=== PATIENT | female | born 1965 | race Caucasian/White ===

== ENCOUNTER → 2020-08-28 | Outpatient (CLI) | payer OTHER ==
[2020-08-28 15:07] VITALS: BP 119/79; PULSE 104; RESP 18; TEMP 98.2
--- NOTE | 2020-08-28 15:25 | P.GSHP ---
History of Present Illness H&P Date: 08/28/20 Chief Complaint: abnormal mammogram and ultrasound Neisha is a 54 year old white female with a mammographic change in the left breast. She is seen in concultation for DR. Boone. The patient had bilateral mammogram on . This revealed an area of asymmetry in the left breast as well as an area of microcalcification. After review with Dr. Martins it was recommended the compression views of the asymmetry be performed as well as magnification views of the area of calcification in the left breast. No lesions of concern were identified in the right breast. An ultrasound no specific lesion of concern was noted. She does not feel any new lumps masses or nodules of concern in either breast. She is not complaining of any nipple discharge or skin changes. She is not complaining of any trauma or infection of the breast. She has not had any prior surgery in the breast. Caffeine:4 pops/day nicotine: none chocolate: occasional Family history: mother: breast cancer Hormonal History: menarche: 9 , adopted 2 breast fed: yes, age at 28 menopause: 44, uterine ablation for bleeding BCP: 1 year hormones: none Surgical history: Uterine ablation Gastric sleeve 2014 [facility] Medical History: depression diabetes Social History: nicotine: none alcohol:none drugs: none - Constitutional Constitutional: Denies chills, Denies fever - EENT Eyes: denies blurred vision, denies pain Ears: deny: decreased hearing, tinnitus Ears, nose, mouth and throat: Denies headache, Denies sore throat - Breasts Breasts: bilateral: as per HPI - Cardiovascular Cardiovascular: Denies chest pain, Denies shortness of breath - Respiratory Respiratory: Denies cough, Denies 7 - Gastrointestinal Gastrointestinal: Denies abdominal pain, Denies diarrhea, Denies nausea, Denies vomiting - Genitourinary (Female) Genitourinary: Denies dysuria, Denies hematuria - Menstruation Menstruation: Reports postmenopausal - Musculoskeletal Musculoskeletal: Denies myalgias - Integumentary Integumentary: Denies pruritus, Denies rash - Neurological Neurological: Denies numbness, Denies weakness - Psychiatric Psychiatric: Reports depression - Endocrine Comment: diabetic - Hematologic/Lymphatic Comment: none - Allergic/Immunologic Allergic/Immunologic: Reports as per HPI Medications and Allergies Home Medications Medication Instructions Recorded Confirmed Type Ascorbic Acid [Vitamin C] 500 mg PO DAILY 08/28/20 08/28/20 History Cyanocobalamin (Vitamin B-12) 1,000 mcg PO DAILY 08/28/20 08/28/20 History [Vitamin B-12] DULoxetine HCL [Cymbalta] 20 mg PO HS 08/28/20 08/28/20 History Multivitamin [Multivitamins Adult 1 each PO DAILY 08/28/20 08/28/20 History Gummies] Zinc 50 mg PO DAILY 08/28/20 08/28/20 History Allergies Allergy/AdvReac Type Severity Reaction Status Date / Time epinephrine Allergy Vomiting Unverified 08/28/20 14:59 Penicillins Allergy Rash/Hives Unverified 08/28/20 14:59 Surgical - Exam BMI 34.6 - General no distress - Eyes normal ocular movement - ENT no hearing loss, no congestion - Neck no masses, trachea midline - Respiratory normal expansion, normal respiratory effort - Cardiovascular Rhythm: regular Heart Sounds: normal: S1, S2 - Abdomen Abdomen: soft - Integumentary normal turgor - Neurologic no disoriented, no combative - Musculoskeletal normal gait - Psychiatric oriented to time, oriented to person, oriented to place, speech is normal, memory intact Breast exam: sports BRA ? size inspection: Bilateral grade 2/3 ptosis Palpation: Right breast: Multi-positional exam fibrocystic changes no dominant masses or no dules of concern Right axilla: No adenopathy of concern Left breast: Multi-positional exam fibrocystic changes, no dominant masses or nodules of concern Left axilla: Positive adenopathy approximately 1 cm freely mobile lymph node Results Mammogram and ultrasound reviewed with Dr. Martins, an area of microcalcification in the left breast as well as some asymmetry was noted and mag views of the microcalcifications and compression views of asymmetry were recommended Assessment and Plan Assessment: Impression: depression diabetes Abnormal left breast mammogram Shotty left axillary adenopathy Positive family history of breast cancer Plan: 1. Mag views of the area of calcification in the left breast, compression views of the area of asymmetry in the left breast 2. Further recommendation to follow completion graphic workup Cc: Dr. Boone
--- NOTE | 2020-08-31 08:20 | MM ---
Reason for exam: review of outside study. Last mammogram was performed 1 month ago. History: Family history of breast cancer in mother. Physical Findings: Breast exam performed by Dr. Madrid. MG 3D Diag Mammo W/Cad LT CC, MLO, spot compression CC, spot compression MLO, CC with magnification, and MLO with magnification view(s) were taken of the left breast. Prior study comparison: August 03, 2020, mammogram. July 20, 2020, mammogram. There are scattered fibroglandular densities. There is an asymmetry left outer breast on CC view only at posterior depth, likely normal tissue and not seen on prior ultrasound, follow up left diagnostic mammogram recommended in 6 months. There is a grouping of coarse heterogeneous calcifications left upper outer quadrant measuring 4 x 3 x 3mm and stereotactic core biopsy is recommended. These results were verbally communicated with the patient and result sheet given to the patient on 08/28/20. ASSESSMENT: Suspicious, BI-RAD 4 RECOMMENDATION: Stereotactic core biopsy of the left breast. Called Dr. Madrid's office with mammographic findings. Biopsy scheduled for 09/03/20 at 8:00. PRELIMINARY REPORT CALLED AND FAXED TO DR. MADRID ON 08/31/20.
== END ==
LOC: WWCWWP 14:46
PROVIDERS: ATTEND Surgery
DX: R92.1 Mammographic calcification found on diagnostic imaging of breast (principal); F32.9 Major depressive disorder, single episode, unspecified; E11.9 Type 2 diabetes mellitus without complications; N64.89 Other specified disorders of breast; R59.9 Enlarged lymph nodes, unspecified; Z80.3 Family history of malignant neoplasm of breast; Z88.0 Allergy status to penicillin; Z88.8 Allergy status to other drugs, medicaments and biological substances
CPT/HCPCS: 77065; G0279; 77061

== ENCOUNTER → 2020-09-03 | Day surgery (SDC) | payer OTHER ==
[2020-09-03 07:23] VITALS: RESP 16
[2020-09-03 08:30] VITALS: BP 129/84; PULSE 80; TEMP 98.5
--- NOTE | 2020-09-03 08:58 | P.OP ---
Date of Procedure: 09/03/20 Preoperative Diagnosis: Mammographic abnormality left breast Postoperative Diagnosis: Same Procedure(s) Performed: Stereotactic core biopsy left breast Anesthesia: local Surgeon: Sindy Madrid Estimated Blood Loss (ml): 1 Pathology: other (Breast tissue with microcalcifications noted in specimen) Condition: stable Disposition: same day Indications for Procedure: Mammographic abnormality left breast course heterogeneous calcifications upper outer quadrant Operative Findings: Microcalcifications noted in specimen Description of Procedure: Batsheva is a 55-year-old white female who was noted to have microcalcifications of concern in her left breast in the upper outer quadrant. Stereotactic core biopsy was recommended. Risks and benefits of the procedure were discussed with the patient. These include but are not limited to bleeding, infection, reaction to the anesthetic. Additionally alternative such as watchful waiting for resection in the operating room were noted but not recommended. The patient opted for a stereotactic core biopsy of the left breast. The patient was taken to the stereotactic core biopsy room. She was positioned prone on the lo-rad table. A ep specialist film was obtained. The area of concern was identified. The lesion was targeted. A CC from above approach was utilized. The breast was prepped using Betadine. 20 mL of 1% lidocaine were used to anesthetize the area of concern. A 9-gauge vacuum-assisted core rotating biopsy needle was driven to the correct coordinates. A prefire film was obtained. The needle was noted to be in the correct location. The needle was fired. Post fire film was obtained. The needle was noted to be in the correct location. 5 specimens were obtained. Radiograph of the specimen revealed the calcifications of concern were removed. A secure sherley top hat clip was placed. The patient tolerated the procedure in stable condition. The specimen was sent to pathology. The patient will follow-up Dr. Dominguez next week.
--- NOTE | 2020-09-03 09:08 | MM ---
EXAMINATION TYPE: MG stereo VAD BX LT DATE OF EXAM: 09/03/2020 COMPARISON: 08/28/2020, 07/20/2020 CLINICAL HISTORY: Left breast calcifications TECHNIQUE: Stereotactic guided core biopsy of left breast. FINDINGS: The following is by report only. Radiologist was present only for the localization and noth ing preceding or after localization. The procedure of stereotactic guided core biopsy was explained t o the patient. Benefits, alternatives, and risks were discussed. An informed consent was then obtai harriet. The shortness pathway for biopsy was chosen. Shortness pathway was cranial approach. I performed the localization, then surgeon, Dr. Madrid performed the remainder of the procedure. A vacuum nikkie ruma biopsy gun was used to obtain multiple core samples. The patient tolerated the procedure well without any immediate complication. The patient was kept in the radiology department for short stay after the procedure and then discharged home in stable condi tion. Targeted calcifications are identified in specimen mammogram. Post biopsy mammogram shows the clip to appear in satisfactory position relative to the targeted area of concern on the preprocedure images. IMPRESSION: SUCCESSFUL, UNCOMPLICATED STEREOTACTIC GUIDED CORE BIOPSY OF AREA OF CONCERN IN THE left BREAST, FULL PATHOLOGY RESULTS TO FOLLOW.
== END ==
LOC: RADMAMWWP 07:03
PROVIDERS: ATTEND Surgery
DX: R92.0 Mammographic microcalcification found on diagnostic imaging of breast (principal); N60.12 Diffuse cystic mastopathy of left breast; N62 Hypertrophy of breast; Z88.0 Allergy status to penicillin; Z88.8 Allergy status to other drugs, medicaments and biological substances
CPT/HCPCS: 88305; 19081; A4648; J2001

== ENCOUNTER → 2020-09-10 | Outpatient (CLI) | payer OTHER ==
[2020-09-10 12:03] VITALS: BP 112/77; PULSE 100; RESP 18; TEMP 97.8
--- NOTE | 2020-09-10 12:18 | P.PN ---
Subjective Progress Note Date: 09/10/20 Principal diagnosis: Ever cystic breast changes/status post sterotactic core biopsy left breast Neisha is a 55 year old white female status post left breast are detected core biopsy on 09-03-20. These were benign. The patient post procedure is doing well with no complications. This is felt to be benign concordant. Objective - Vital Signs Vital signs: Vital Signs Temp 97.8 F 09/10/20 12:00 Pulse 100 09/10/20 12:00 Resp 18 09/10/20 12:00 BP 112/77 09/10/20 12:00 Pulse Ox 95 09/10/20 12:00 Intake & Output 09/09/20 09/10/20 09/10/20 18:59 06:59 18:59 Weight 93.44 kg - Exam BMI 34.3 - Constitutional General appearance: Present: cooperative - EENT Eyes: Present: EOMI ENT: Present: hearing grossly normal - Neck Neck: Present: normal ROM - Respiratory Respiratory: bilateral: CTA - Cardiovascular Rhythm: regular Heart sounds: normal: S1, S2 - Integumentary Integumentary Comment(s): Biopsy site left breast clean and dry/mild ecchymosis No evidence of infection Assessment and Plan Assessment: Present: 1. Patient status post left breast are detected core biopsy pathology benign Plan: 1. Repeat left breast mammogram in 6 months with physician exam at that time CC:Paolo
== END ==
LOC: WWCWWP 11:15
PROVIDERS: ATTEND Surgery
DX: Z09 Encounter for follow-up examination after completed treatment for conditions other than malignant neoplasm (principal); Z98.890 Other specified postprocedural states; Z88.0 Allergy status to penicillin; Z88.8 Allergy status to other drugs, medicaments and biological substances

== ENCOUNTER → 2021-03-08 | Outpatient (CLI) | payer OTHER ==
--- NOTE | 2021-03-08 11:43 | MM ---
Reason for exam: follow-up at short interval from prior study. Last mammogram was performed 6 months ago. History: Family history of breast cancer in mother at age 67. Benign MG stereo VAD BX LT of the left breast, September 03, 2020. Physical Findings: Nurse did not find any significant physical abnormalities on exam. MG Diagnostic Mammo LT w CAD CC and MLO view(s) were taken of the left breast. Prior study comparison: August 28, 2020, left breast MG 3d diag mammo w/cad LT. August 03, 2020, mammogram. Previous mammotome biopsy in the left breast. No significant new findings when compared with previous films. These results were verbally communicated with the patient and result sheet given to the patient on 03/08/21. ASSESSMENT: Benign, BI-RAD 2 RECOMMENDATION: Routine screening mammogram of both breasts in 6 months. Back on schedule.
== END | disposition home or self-care (01) ==
LOC: RADMAMWWP 10:48
PROVIDERS: ATTEND Surgery
DX: R92.8 Other abnormal and inconclusive findings on diagnostic imaging of breast (principal); Z80.3 Family history of malignant neoplasm of breast
CPT/HCPCS: 77065

== ENCOUNTER → 2021-03-26 | Outpatient (CLI) | payer OTHER ==
[2021-03-26 16:40] VITALS: BP 124/73; PULSE 98; RESP 16; TEMP 97.4
--- NOTE | 2021-03-26 17:28 | P.PN ---
Subjective Progress Note Date: 03/26/21 Principal diagnosis: fibrocystic breast changes Neisha is a 54 year old white female with a mammographic change in the left breast. She was seen in consultation for DR. Boone. The patient had bilateral mammogram on . This revealed an area of asymmetry in the left breast as well as an area of microcalcification. After review with Dr. Martins it was recommended the compression views of the asymmetry be performed as well as magnification views of the area of calcification in the left breast. No lesions of concern were identified in the right breast. An ultrasound no specific lesion of concern was noted. She did not feel any new lumps masses or nodules of concern in either breast. She was not complaining of any nipple discharge or skin changes. She was not complaining of any trauma or infection of the breast. She had not had any prior surgery in the breast. On 09-03-20 she had a stero biopsy of the left breast which was benign concordant fibrocystic disease. Patient has not noted any new lumps masses or nodules of concern. She had a left breast mammogram in [id number] which was benign BIRADS 2. After her mammogram on the last visit it was recommended that bilateral mammogram be done secondary to asymmetry and this will be ordered. Caffeine:4 pops/day nicotine: none chocolate: occasional Family history: mother: breast cancer Hormonal History: menarche: 9 , adopted 2 breast fed: yes, age at 28 menopause: 44, uterine ablation for bleeding BCP: 1 year hormones: none Surgical history: Uterine ablation Gastric sleeve 2015 [facility] Medical History: depression diabetes (insulin) Social History: nicotine: none alcohol:none drugs: none - Constitutional Constitutional: Denies chills, Denies fever - EENT Eyes: denies blurred vision, denies pain Ears: deny: decreased hearing, tinnitus Ears, nose, mouth and throat: Denies headache, Denies sore throat - Breasts Breasts: bilateral: as per HPI - Cardiovascular Cardiovascular: Denies chest pain, Denies shortness of breath - Respiratory Respiratory: Denies cough - Gastrointestinal Gastrointestinal: Denies abdominal pain, Denies diarrhea, Denies nausea, Denies vomiting - Genitourinary (Female) Genitourinary: Denies dysuria, Denies hematuria - Menstruation Menstruation: Reports postmenopausal - Musculoskeletal Musculoskeletal: Denies myalgias - Integumentary Integumentary: Denies pruritus, Denies rash - Neurological Neurological: Denies numbness, Denies weakness - Psychiatric Psychiatric: Reports depression - Endocrine Comment: diabetic - Hematologic/Lymphatic Comment: none - Allergic/Immunologic Allergic/Immunologic: Reports as per HPI Objective - Vital Signs Vital signs: Vital Signs Temp 97.4 F L 03/26/21 16:32 Pulse 98 03/26/21 16:32 Resp 16 03/26/21 16:32 BP 124/73 03/26/21 16:32 Pulse Ox Intake & Output 03/25/21 03/26/21 03/26/21 18:59 06:59 18:59 Weight 89.358 kg - Exam BMI 32.8 - Constitutional General appearance: Present: cooperative - EENT Eyes: Present: EOMI ENT: Present: hearing grossly normal - Neck Neck: Present: normal ROM - Respiratory Respiratory: bilateral: CTA - Cardiovascular Rhythm: regular Heart sounds: normal: S1, S2 - Gastrointestinal General gastrointestinal: Present: soft - Integumentary Integumentary: Present: normal turgor - Musculoskeletal Musculoskeletal: Present: gait normal - Psychiatric Psychiatric: Present: A&O x's 3, appropriate affect, intact judgment & insight - Additional findings Additional findings: Breast Exam: BRA: sports XXL inspection: bilateral grade 3 ptosis palpation: right breast: Positional exam fibrocystic changes no dominant masses or nodules of concern Right axilla: No adenopathy of concern Left breast: Multi-positional exam fibrocystic changes no dominant masses or nodules of concern Left axilla: No adenopathy of concern Assessment and Plan Assessment: Impression: Fibrocystic breast changes Patient was recommended to have a right breast mammogram as well secondary to some asymmetry with her initial films have been reviewed right with Dr. Martins Plan: Right breast mammogram at this time if this is benign and bilateral mammogram in 6 months with physician exam at that time CC: Dr. Boone
== END ==
LOC: WWCWWP 16:23
PROVIDERS: ATTEND Surgery
DX: N60.11 Diffuse cystic mastopathy of right breast (principal); N60.12 Diffuse cystic mastopathy of left breast; F32.A Depression, unspecified; E11.9 Type 2 diabetes mellitus without complications; Z79.4 Long term (current) use of insulin; Z88.0 Allergy status to penicillin; Z88.6 Allergy status to analgesic agent

== ENCOUNTER → 2021-04-08 | Outpatient (CLI) | payer OTHER ==
--- NOTE | 2021-04-09 08:32 | MM ---
Reason for exam: additional evaluation requested from abnormal screening. Last mammogram was performed 1 month ago. History: Family history of breast cancer in mother at age 67. Benign MG stereo VAD BX LT of the left breast, September 03, 2020. Physical Findings: Nurse did not find any significant physical abnormalities on exam. MG Diagnostic Mammo RT w CAD CC, MLO, and XCCL view(s) were taken of the right breast. Prior study comparison: March 08, 2021, left breast MG diagnostic mammo LT w CAD. August 28, 2020, left breast MG 3d diag mammo w/cad LT. There are scattered fibroglandular densities. Focal asymmetry on 03/08/21 films of right breast. These results were verbally communicated with the patient and result sheet given to the patient on 04/08/21. ASSESSMENT: Probably benign, BI-RAD 3 RECOMMENDATION: Follow-up diagnostic mammogram of both breasts in 6 months.
== END | disposition home or self-care (01) ==
LOC: RADMAMWWP 14:54
PROVIDERS: ATTEND Surgery
DX: R92.8 Other abnormal and inconclusive findings on diagnostic imaging of breast (principal); Z80.3 Family history of malignant neoplasm of breast
CPT/HCPCS: 77065

== ENCOUNTER → 2022-03-24 | Outpatient (CLI) | payer OTHER ==
--- NOTE | 2022-03-24 12:09 | MM ---
Reason for Exam: Additional evaluation requested from prior study. Last mammogram was performed 1 year(s) and 8 month(s) ago. Patient History: Menarche at age 8. First Full-Term at age 28. Late child-bearing (after 30). Postmenopausal. 09/03/2020, Benign Core Biopsy on the left side. Mother had breast cancer, age 67. Risk Values: Aydee 5 year model risk: 3.5%. NCI Lifetime model risk: 18.9%. Prior Study Comparison: 08/28/2020 Left Diagnostic Mammogram, [facility]. 03/08/2021 Left Diagnostic Mammogram, [facility]. 04/08/2021 Right Diagnostic Mammogram, [facility]. Tissue Density: There are scattered fibroglandular densities. Findings: Analyzed By CAD. There are areas of asymmetric density upper outer quadrant left breast which appear more defined from the 2020 exam, likely due to interval weight loss. These areas do not become any more defined spot compression views. Suspect island of fibroglandular tissue neck in the confirmed with a 6 month follow-up. Centrally located asymmetric density left cc view remains unchanged. Overall Assessment: Probably benign, BI-RAD 3 Management: Diagnostic Mammogram of the left breast in 6 months. 1. Patient should continue monthly self breast exams. 2. A clinical breast exam by your physician is recommended on an annual basis. 3. This exam should not preclude additional follow-up of suspicious palpable abnormalities. Results were given to the patient verbally at the time of exam. Electronically signed and approved by: Bigg Howard M.D. Radiologist
== END | disposition home or self-care (01) ==
LOC: RADMAMWWP 10:49
PROVIDERS: ATTEND Surgery
DX: R92.8 Other abnormal and inconclusive findings on diagnostic imaging of breast (principal); Z78.0 Asymptomatic menopausal state; Z80.3 Family history of malignant neoplasm of breast
CPT/HCPCS: 77066

== ENCOUNTER → 2022-09-26 | Outpatient (CLI) | payer OTHER ==
--- NOTE | 2022-09-26 16:57 | US ---
EXAMINATION TYPE: US kidneys/renal and bladder DATE OF EXAM: 09/26/2022 COMPARISON: NONE CLINICAL INDICATION: Female, 57 years old with history of R31.9 hematuria; Pt states microscopic isabel turia, right flank pain EXAM MEASUREMENTS: Right Kidney: 11.6 x 5.8 x 5.2 cm Left Kidney: 11.3 x 6.2 x 5.3 cm Right Kidney: No hydronephrosis or masses seen Left Kidney: No hydronephrosis or masses seen Bladder: wnl Bilateral Jets seen: Only right jet visualized There is no evidence for hydronephrosis at this point in time. No nephrolithiasis is seen. No bennett s are identified. The urinary bladder is anechoic. Bilateral ureteral jets are seen. IMPRESSION: No evidence for obstructive uropathy. Cortical medullary differentiation is maintained. No renal calculi visualized.
== END | disposition home or self-care (01) ==
LOC: RADUSWWP 15:21
PROVIDERS: ATTEND Internal Medicine Geriatric Medicine
DX: R31.9 Hematuria, unspecified (principal)
CPT/HCPCS: 76770

== ENCOUNTER → 2023-03-28 | Outpatient (CLI) | payer OTHER | END | disposition home or self-care (01) | LOC: RADMAMWWP 11:06 | PROVIDERS: ATTEND Internal Medicine Geriatric Medicine | DX: Z53.9 Procedure and treatment not carried out, unspecified reason (principal) ==

== ENCOUNTER → 2023-03-28 | Outpatient (CLI) | payer OTHER ==
--- NOTE | 2023-03-28 11:12 | MM ---
Reason for Exam: Follow-up at short interval from prior study. Last screening mammogram was performed 12 month(s) ago. Patient History: Menarche at age 8. First Full-Term at age 28. Late child-bearing (after 30). Postmenopausal. Patient has history of breast feeding. 09/03/2020, Benign Core Biopsy on the left side. Mother had breast cancer, age 67. Risk Values: Aydee 5 year model risk: 3.6%. NCI Lifetime model risk: 18.5%. Prior Study Comparison: 07/20/2020 Screening Mammogram, Unknown. 08/03/2020 Screening Mammogram, Unknown. 08/28/2020 Left Diagnostic Mammogram, [facility]. 03/08/2021 Left Diagnostic Mammogram, [facility]. 04/08/2021 Right Diagnostic Mammogram, [facility]. 03/24/2022 Bilateral MG diagnostic mammo w CAD [place], [facility]. Tissue Density: There are scattered fibroglandular densities. Findings: Analyzed By CAD. There is no suspicious group of microcalcifications or new suspicious mass. No new suspicious masses, calcifications or distortions. Overall Assessment: Negative, BI-RAD 1 Management: Screening Mammogram of both breasts in 1 year. Results were given to the patient verbally at the time of exam. Patient should continue monthly self-breast exams. A clinical breast exam by your physician is recommended on an annual basis. This exam should not preclude additional follow-up of suspicious palpable abnormalities. Note on Aydee scores and lifetime risk: 1. A Aydee score greater than 3% is considered moderate risk. If this is the case, consider specialist referral to assess eligibility for a risk reducing agent. 2. If overall lifetime risk for the development of breast cancer is 20% or higher, the patient may qualify for future screening with alternating mammogram and breast MRI. Electronically signed and approved by: Alvarado Zhang DO
--- NOTE | 2023-03-29 08:45 | BD ---
EXAMINATION TYPE: Axial Bone Density DATE OF EXAM: 03/28/2023 CLINICAL HISTORY: 57 years old Female. ICD-10 CODE: M89.9 DISORDER OF BONE, UNSPECIFIED Height: 65 Weight: 209.4 FRAX RISK QUESTIONS: Alcohol (3 or more units per day): no Family History (Parent hip fracture): no Glucocorticoids (More than 3mos): no History of Fracture in Adulthood: no Secondary Osteoporosis: 1. Type 1 Diabetes: no 2. Hyperthyroidism: no 3. Menopause before 45: no 4. Malnutrition: no 5. Chronic liver disease: no Rheumatoid Arthritis: no Current Tobacco Use: no RISK FACTORS HISTORY OF: Hip Fracture (Right/Left): no Spine Fracture: no History of Wrist Fracture: no Surgery to Spine/Hip(right/left)/Wrist (right/left): no Family History of Osteoporosis: no Active: yes Diet low in dairy products/other sources of calcium: yes Postmenopausal woman: yes Take estrogen and/or progesterone medications: no Lost more than 2 inches in height since high school: no Frequent falls: no Poor Health: no Hyperparathyroidism: no Adrenal Insufficiency: no MEDICATIONS: Prednisone or other steroids: no Thyroid Medications: no Osteoporosis Medications: no Additional Medications: Depression, Ozempic, Cholesterol Med, Vit D Additional History: EXAM MEASUREMENTS: Bone mineral densitometry was performed using the [employer] System. Bone mineral density as measured about the Lumbar spine is: ----- L1-L4(G/cm2): 1.289 T Score Values are as follows: ----- L1: -0.8 ----- L2: 0.3 ----- L3: 1.6 ----- L4: 1.9 ----- L1-L4: 0.9 Z Score Values are as follows: ----- L1: -0.6 ----- L2: 0.5 ----- L3: 1.7 ----- L4: 2.0 ----- L1-L4: 1.1 Baseline Study Bone mineral density about the R hip (g/cm2): 1.252 Bone mineral density about the L hip (g/cm2): 1.238 T Score values are as follows: -----R Neck: 0.7 -----L Neck: 0.1 -----R Total: 1.9 -----L Total: 1.8 Z Score values are as follows: -----R Neck: 1.3 -----L Neck: 0.7 -----R Total: 2.1 -----L Total: 2.0 Baseline Study FRAX%s: The graph provided illustrates a 5.6% chance for a major osteoporotic fx and a 0.1% chance fo r the hips probability for fx in 10 years time. IMPRESSION: Normal (Values between +1 and -1 indicate normal bone mass). Consider repeating this study in 5 year s or sooner if there is some new clinical indication. NOTE: T-SCORE=SD OF THE YOUNG ADULT MEAN.
== END | disposition home or self-care (01) ==
LOC: RADBDWWP 10:45
PROVIDERS: ATTEND Internal Medicine Geriatric Medicine
DX: M89.9 Disorder of bone, unspecified (principal); R92.323 Mammographic fibroglandular density, bilateral breasts; Z78.0 Asymptomatic menopausal state; Z80.3 Family history of malignant neoplasm of breast
CPT/HCPCS: 77062; 77066; 77080